=== PATIENT | male | born 1990 | race Two or more races ===

== ENCOUNTER → 2019-04-08 | Outpatient (CLI) | payer SELFPAY ==
[2019-04-08 15:22] LABS: HEMATOCRIT 46.3 % (42.0-52.0); HEMOGLOBIN 15.9 g/dl (13.5-17.5); MEAN CORPUSCULAR HEMOGLOBIN 29.6 pg (27.0-33.0); MEAN CORPUSCULAR HGB CONC 34.3 g/dl (32.0-36.5); MEAN CORPUSCULAR VOLUME 86.2 fl (80.0-96.0); PLATELET COUNT, AUTOMATED 161 10^3/uL (150-450); RED BLOOD COUNT 5.37 10^6/uL (4.30-6.10); WHITE BLOOD COUNT 7.3 10^3/uL (4.0-10.0)
[2019-04-08 15:54] LABS: HEMOGLOBIN A1c 5.7 %
[2019-04-08 15:59] LABS: ALBUMIN 4.3 GM/DL (3.2-5.2); ALT/SGPT 33 U/L (12-78); BILIRUBIN,TOTAL 0.5 MG/DL (0.2-1.0); BLOOD UREA NITROGEN 13 MG/DL (7-18); CALCIUM LEVEL 9.3 MG/DL (8.5-10.1); CARBON DIOXIDE LEVEL 30 MEQ/L (21-32); CHLORIDE LEVEL 107 MEQ/L (98-107); CHOLESTEROL LEVEL 178 MG/DL (<200); CREATININE FOR GFR 0.78 MG/DL (0.70-1.30); GLOMERULAR FILTRATION RATE > 60.0 (>60); GLUCOSE, FASTING 67 MG/DL (70-100); HDL CHOLESTEROL 37 MG/DL (>40); LDL CHOLESTEROL 106 MG/DL (<100); NON-HDL-C 141 MG/DL; POTASSIUM SERUM 4.1 MEQ/L (3.5-5.1); SODIUM LEVEL 140 MEQ/L (136-145); TESTOSTERONE 589 NG/DL (241-827); TOTAL PROTEIN 7.5 GM/DL (6.4-8.2); TRIGLYCERIDES LEVEL 176 MG/DL (<150)
--- NOTE | 2019-04-08 16:37 | ECGEPIP ---
[facility] Test Date: 2019-04-08 Pat Name: SETH JJ II Department: Room: - Gender: Male [employer]er: [id number] : 1990 Requested By: Yao Acevedo Order Number: [id number] Reading MD: Jesús Oakley Measurements Intervals [place] Rate: 66 P: 45 ME: 163 QRS: 82 QRSD: 101 T: 23 QT: 352 QTc: 369 Interpretive Statements SINUS RHYTHM Normal Electronically Signed on 04-08-2019 16:37:43 EST by Jesús Oakley
--- NOTE | 2019-04-08 18:50 | REP ---
CERVICAL SPINE SERIES: Full cervical spine series performed with eight views obtained. There is no compression fracture or malalignment. There is no prevertebral soft tissue swelling. There is no subluxation with flexion and extension. There is mild disc space narrowing at C5-6. I do not see radiographic evidence of significant neural foraminal narrowing bilaterally. IMPRESSION: Mild disc space narrowing C5-6. Electronically Signed by Fidel Groves MD 04/09/2019 10:27 A
== END ==
LOC: M LAB 14:26
PROVIDERS: ATTEND Family Medicine
DX: D64.9 Anemia, unspecified (principal); I10 Essential (primary) hypertension; R53.83 Other fatigue

== ENCOUNTER → 2019-05-18 | Outpatient (CLI) | payer SELFPAY | LOC: M LAB 14:36 | PROVIDERS: ATTEND Family Medicine | DX: Z51.81 Encounter for therapeutic drug level monitoring (principal) ==

== ENCOUNTER → 2022-09-24 | Outpatient (REF) | payer OTHER ==
[~2022-09-24] MED LIST: ALPR1TAB3; VENTAER INH
== END ==
LOC: M LAB REF 14:00
PROVIDERS: ATTEND Family Medicine
DX: Z51.81 Encounter for therapeutic drug level monitoring (principal); Z91.148 Patient's other noncompliance with medication regimen for other reason